=== PATIENT | male | born 1985 | race Caucasian/White ===

== ENCOUNTER → 2019-02-14 | Outpatient (CLI) | payer OTHER ==
[2019-02-14 14:11] LABS: COLLECTION METHOD DRY COLLECTION; SPECIMEN CONTAINER POLYPROPYLENE CUP
[2019-02-14 14:50] LABS: COLLECTION SITE ON-SITE; DAYS ABSTINENT 3 DAYS (2-7)
[2019-02-14 14:51] LABS: PV NONMOTILE COUNT1 0; PV NONMOTILE COUNT2 0; PV ROUND CELL CONCENTRATION 0.5 X10^6/mL (<5.1); PV ROUND CELL COUNT1 5; PV ROUND CELL COUNT2 4; PV SEMEN COLOR STRAW; PV SEMEN LIQUEFACTION 20 MINUTES (<61); PV SEMEN PH 7.9 (>7.1); PV SEMEN VISCOSITY LOW (NORMAL); PV STRAIGHT MOTILITY CNT 1 0; PV STRAIGHT MOTILITY CNT 2 0; PV VOLUME 2.1 mL (>1.9); SEMEN TESTING TIME 1410
== END ==
LOC: LAB 13:14
PROVIDERS: ATTEND Family Medicine
DX: Z30.2 Encounter for sterilization (principal)
CPT/HCPCS: 89321